=== PATIENT | male | born 1935 | race Caucasian/White ===

== ENCOUNTER 2019-05-03 19:01 | Inpatient (IN) | payer MEDICARE, OTHER ==
[~2019-05-03] VITALS: Ht 160 cm; Wt 67.1 kg
[2019-05-03 19:49] LABS: BASOPHILS # (AUTO) 0.1 /CMM (0.0-0.2); BASOPHILS % (AUTO) 2.2 % (0.0-2.0); HEMATOCRIT 33 % (39-51); HEMOGLOBIN 10.6 g/dL (13.5-17.5); LYMPHOCYTES # (AUTO) 2.2 /CMM (0.8-4.8); LYMPHOCYTES % (AUTO) 32.5 % (20.0-44.0); MEAN CORPUSCULAR HGB CONC 32 g/dl (31.0-36.0); MEAN CORPUSCULAR VOLUME 87 fL (80-96); MONOCYTES # (AUTO) 0.4 /CMM (0.1-1.30); MONOCYTES % (AUTO) 5.6 % (2.0-12.0); NEUTROPHILS # (AUTO) 3.6 /CMM (1.8-8.9); NEUTROPHILS % (AUTO) 53.7 % (43.0-81.0); PLATELET COUNT (AUTO) 228 /CMM (150-450); RED BLOOD CELL COUNT(AUTO) 3.74 MIL/uL (4.5-6.0); WHITE BLOOD COUNT (AUTO) 6.7 K/uL (4.3-11.0)
[2019-05-03 19:56] LABS: APPEARANCE,URINE Clear (CLEAR); BILIRUBIN,URINE Negative (NEGATIVE); BLOOD, URINE Negative Ery/uL (NEGATIVE); COLOR,URINE Yellow (YELLOW); KETONES,URINE Negative (NEGATIVE); LEUKOCYTE ESTERASE ,URINE Trace (NEGATIVE); NITRITE, URINE Negative (NEGATIVE); PH,URINE 5.5 (5.0-8.0); PROTEIN,URINE 30 mg/dl (NEGATIVE); UGLUCOSE Negative (NEGATIVE); UROBILINOGEN,URINE 0.2 EU/dL (0.2)
[2019-05-03 20:00] LABS: ALANINE AMINOTRANSFERASE 30 U/L (12-78); ALBUMIN 3.9 g/dL (3.4-5.0); ALKALINE PHOSPHATASE 102 U/L (46-116); ASPARTATE AMINOTRANSFERASE 28 U/L (15-37); BILIRUBIN,TOTAL 0.1 mg/dL (0.2-1.0); CALCIUM, SERUM 9.1 mg/dL (8.5-10.1); CARBON DIOXIDE 29 mmol/L (21-32); CHLORIDE 105 mmol/L (98-107); CREATININE 1.4 mg/dL (0.6-1.3); GLUCOSE 76 mg/dL (74-106); POTASSIUM 4.1 mmol/L (3.5-5.1); SODIUM SERUM 144 mmol/L (136-145); UREA NITROGEN, BLOOD 31 mg/dL (7-18)
[2019-05-03 20:10] LABS: BACTERIA,URINE Few /HPF (None Seen); RBC,URINE 0-2 /HPF (0-2); SQUAMOUS EPITHELIAL CELL,UR Few /HPF (None Seen); URINE AMORPHOUS URATE Moderate /HPF (None Seen)
[2019-05-03] MEDS ORDERED: Z GUARD REMEDY 2 OZ OINT TP PRN (21:30)
[2019-05-03] MEDS ORDERED: ACETAMINOPHEN 325 MG TABLET PO PRN (21:30)
[2019-05-03] MEDS ORDERED: MAGNESIUM HYDROXIDE 30 ML UDC PO PRN (21:30)
[2019-05-03] MEDS ORDERED: HYDROCODONE/APAP 5/325MG 1 EACH TABLET PO PRN (21:30)
[2019-05-03] MEDS ORDERED: ONDANSETRON HCL/PF 4 MG/2 ML VIAL IVP PRN (21:30)
[2019-05-03] MEDS ORDERED: MAG HYDROX/AL HYDROX/SIMETH 30 ML UDC PO PRN (21:30)
[2019-05-03] MEDS ORDERED: CEFTRIAXONE 1 G VIAL ONE (22:24)
[2019-05-03] MEDS: CEFTRIAXONE 1 G in IV D5W 50 ML IV SCH (22:30)
[2019-05-03] MEDS: IV NS 0.9% 1,000 ML IV PRN (22:44)
[2019-05-04 08:45] LABS: BASOPHILS % (AUTO) 0.8 % (0.0-2.0); EOSINOPHILS % (AUTO) 4.2 % (0.0-6.0); HEMATOCRIT 32 % (39-51); HEMOGLOBIN 10.4 g/dL (13.5-17.5); LYMPHOCYTES % (AUTO) 34.3 % (20.0-44.0); MEAN CORPUSCULAR HGB CONC 32 g/dl (31.0-36.0); MEAN CORPUSCULAR VOLUME 87 fL (80-96); MONOCYTES # (AUTO) 0.5 /CMM (0.1-1.30); MONOCYTES % (AUTO) 9.2 % (2.0-12.0); NEUTROPHILS # (AUTO) 3.1 /CMM (1.8-8.9); NEUTROPHILS % (AUTO) 51.5 % (43.0-81.0); PLATELET COUNT (AUTO) 205 /CMM (150-450); RED BLOOD CELL COUNT(AUTO) 3.74 MIL/uL (4.5-6.0); WHITE BLOOD COUNT (AUTO) 5.9 K/uL (4.3-11.0)
[2019-05-04 08:56] LABS: POTASSIUM 4.4 mmol/L (3.5-5.1)
[2019-05-04 09:17] LABS: CALCIUM, SERUM 8.3 mg/dL (8.5-10.1); CREATININE 1.1 mg/dL (0.6-1.3); MAGNESIUM 1.8 mg/dL (1.8-2.4)
[2019-05-04 09:48] VITALS: BP 143/73
[2019-05-04] MEDS: NICOTINE PATCH (14MG) 14 MG PATCH.TD24 TD SCH (12:30)
[2019-05-04] MEDS: IV NS 0.9% 1,000 ML IV PRN (12:47)
[2019-05-04 20:00] VITALS: BP 139/82
[2019-05-04] MEDS: CEFTRIAXONE 1 G in IV D5W 50 ML IV SCH (21:12)
[2019-05-05 01:30] LABS: THYROID STIMULATING HORMONE 4.852 uIU/mL (0.358-3.74)
[2019-05-05] MEDS: IV NS 0.9% 1,000 ML IV PRN (03:29)
[2019-05-05 07:59] LABS: BASOPHILS % (AUTO) 0.8 % (0.0-2.0); EOSINOPHILS % (AUTO) 7.7 % (0.0-6.0); HEMATOCRIT 32 % (39-51); HEMOGLOBIN 10.5 g/dL (13.5-17.5); LYMPHOCYTES # (AUTO) 1.5 /CMM (0.8-4.8); MEAN CORPUSCULAR HGB CONC 33 g/dl (31.0-36.0); MEAN CORPUSCULAR VOLUME 86 fL (80-96); MONOCYTES # (AUTO) 0.5 /CMM (0.1-1.30); MONOCYTES % (AUTO) 8.3 % (2.0-12.0); NEUTROPHILS # (AUTO) 3.1 /CMM (1.8-8.9); NEUTROPHILS % (AUTO) 55.2 % (43.0-81.0); PLATELET COUNT (AUTO) 185 /CMM (150-450); RED BLOOD CELL COUNT(AUTO) 3.73 MIL/uL (4.5-6.0); WHITE BLOOD COUNT (AUTO) 5.5 K/uL (4.3-11.0)
[2019-05-05 08:00] VITALS: BP 129/74
[2019-05-05] MEDS: NICOTINE PATCH (14MG) 14 MG PATCH.TD24 TD SCH (08:20)
[2019-05-05 08:37] LABS: CALCIUM, SERUM 8.6 mg/dL (8.5-10.1); POTASSIUM 3.8 mmol/L (3.5-5.1)
[2019-05-05] MEDS: ASPIRIN 81 MG TAB.CHEW PO SCH (11:00)
[2019-05-05 13:01] LABS: CHOLESTEROL 138 mg/dL (<200); HDL CHOLESTEROL 56 mg/dL (40-60); LDL 64 mg/dL (0-99); TRIGLYCERIDES 81 mg/dL (30-150)
[2019-05-05 16:00] VITALS: BP 152/82
[2019-05-05 20:00] VITALS: BP 155/94
[2019-05-05 20:36] VITALS: BP 155/94
[2019-05-05] MEDS: CEFTRIAXONE 1 G in IV D5W 50 ML IV SCH (21:51)
[2019-05-05] MEDS: ATORVASTATIN 10 MG TABLET PO SCH (22:22)
[2019-05-06] VITALS: BP 132/84
[2019-05-06] MEDS: IV NS 0.9% 1,000 ML IV PRN ×2 (05:15→23:27)
[2019-05-06 08:00] VITALS: BP 148/79
[2019-05-06] MEDS: ASPIRIN 81 MG TAB.CHEW PO SCH (09:17)
[2019-05-06] MEDS: NICOTINE PATCH (14MG) 14 MG PATCH.TD24 TD SCH (09:17)
[2019-05-06 16:00] VITALS: BP 153/85
[2019-05-06 20:00] VITALS: BP 154/95
[2019-05-06 20:44] VITALS: BP 154/95
[2019-05-06 20:47] VITALS: BP 154/95
[2019-05-06] MEDS: CEFTRIAXONE 1 G in IV D5W 50 ML IV SCH (21:25)
[2019-05-06] MEDS: ATORVASTATIN 10 MG TABLET PO SCH (21:26)
[2019-05-06] MEDS: MIRTAZAPINE 15 MG TABLET PO SCH (21:26)
[2019-05-07 04:02] VITALS: BP 139/57
[2019-05-07 06:46] LABS: CALCIUM, SERUM 8.7 mg/dL (8.5-10.1); CREATININE 0.9 mg/dL (0.6-1.3); POTASSIUM 3.9 mmol/L (3.5-5.1)
[2019-05-07 08:00] VITALS: BP 148/80
[2019-05-07] MEDS: NICOTINE PATCH (14MG) 14 MG PATCH.TD24 TD SCH (08:44)
[2019-05-07] MEDS: ASPIRIN 81 MG TAB.CHEW PO SCH (08:46)
[2019-05-07 16:00] VITALS: BP 138/80
[2019-05-07] MEDS: IV NS 0.9% 1,000 ML IV PRN (17:44)
[2019-05-07 20:00] VITALS: BP 145/79
[2019-05-07] MEDS: CEFTRIAXONE 1 G in IV D5W 50 ML IV SCH (21:02)
[2019-05-07] MEDS: MIRTAZAPINE 15 MG TABLET PO SCH (21:03)
[2019-05-07] MEDS: ATORVASTATIN 10 MG TABLET PO SCH (21:03)
[2019-05-08] MEDS: IV NS 0.9% 1,000 ML IV PRN ×2 (05:50→18:13)
[2019-05-08] MEDS: ASPIRIN 81 MG TAB.CHEW PO SCH (08:48)
[2019-05-08] MEDS: NICOTINE PATCH (14MG) 14 MG PATCH.TD24 TD SCH (08:48)
[2019-05-08 09:14] VITALS: BP 146/79
[2019-05-08] MEDS ORDERED: SERTRALINE HCL 25 MG TABLET PO SCH (13:00)
[2019-05-08] MEDS: SERTRALINE HCL 25 MG TABLET PO SCH (16:11)
[2019-05-08 19:30] VITALS: BP 119/75
[2019-05-08 20:00] VITALS: BP 119/75
[2019-05-08] MEDS: CEFTRIAXONE 1 G in IV D5W 50 ML IV SCH (21:31)
[2019-05-08] MEDS: ATORVASTATIN 10 MG TABLET PO SCH (21:31)
[2019-05-08] MEDS ORDERED: MIRTAZAPINE 15 MG TABLET PO SCH (22:00)
[2019-05-09] MEDS: NICOTINE PATCH (14MG) 14 MG PATCH.TD24 TD SCH (08:17)
[2019-05-09] MEDS: ASPIRIN 81 MG TAB.CHEW PO SCH (08:21)
[2019-05-09 08:22] VITALS: BP 129/77
[2019-05-09] MEDS: ENSURE ENLIVE 237 ML LIQUID (VANILLA) PO SCH ×2 (09:37→17:00)
[2019-05-09] MEDS: SERTRALINE HCL 25 MG TABLET PO SCH (12:03)
[2019-05-09 16:00] VITALS: BP 142/71
== END 2019-05-09 17:30 | DRG 682 ==
LOC: ER 19:06 → MED 21:12
PROVIDERS: ADMIT Internal Medicine; ATTEND Nurse Practitioner Acute Care
DX: N17.0 Acute kidney failure with tubular necrosis (principal); J15.9 Unspecified bacterial pneumonia; G93.41 Metabolic encephalopathy; F05 Delirium due to known physiological condition; F33.2 Major depressive disorder, recurrent severe without psychotic features; R29.6 Repeated falls; R62.7 Adult failure to thrive; E03.9 Hypothyroidism, unspecified; F03.90 Unspecified dementia, unspecified severity, without behavioral disturbance, psychotic disturbance, mood disturbance, and anxiety; F17.200 Nicotine dependence, unspecified, uncomplicated; Z86.73 Personal history of transient ischemic attack (TIA), and cerebral infarction without residual deficits; D63.8 Anemia in other chronic diseases classified elsewhere; Z68.26 Body mass index [BMI] 26.0-26.9, adult; R53.1 Weakness; F29 Unspecified psychosis not due to a substance or known physiological condition; E86.0 Dehydration; R32 Unspecified urinary incontinence; M48.02 Spinal stenosis, cervical region; Z91.81 History of falling
CPT/HCPCS: 36415; 70450-TC; 70551-TC; 71045-TC; 72125-TC; 72128-TC; 73564-TC; 80048-TC; 80061-TC; 80076-TC; 81000-TC; 83540-TC; 83605-TC; 83735-TC; 84100-TC; 84439-TC; 84443-TC; 84484-TC; 85025-TC; 85730-TC; 86850-TC; 87040-TC; 87081-TC; 94799-TC; 97112-TC; 97116-TC; 97530-TC; G0378; J0696; J2405; J7030; J7060